=== PATIENT | female | born 1975 | race Caucasian/White ===

== ENCOUNTER → 2016-12-01 | Outpatient (CLI) | payer BC ==
--- NOTE | 2016-12-04 11:57 | MM ---
Reason for exam: screening (asymptomatic). Last mammogram was performed 6 years and 8 months ago. History: Patient has history of other cancer at age 38 and is nulliparous. Family history of breast cancer in maternal grandmother. Taking hormonal contraceptives for 25 years beginning at age 16. Physical Findings: A clinical breast exam by your physician is recommended on an annual basis and results should be correlated with mammographic findings. MG Screening Mammo w CAD Bilateral CC and MLO view(s) were taken. Prior study comparison: April 14, 2010, mammogram, performed at [facility]. January 10, 2008, mammogram, performed at [facility]. The breast tissue is heterogeneously dense. This may lower the sensitivity of mammography. New nodular density upper inner quadrant of right breast, 4.3cm from nipple. ASSESSMENT: Incomplete: need additional imaging evaluation, BI-RAD 0 RECOMMENDATION: Special view mammogram of the right breast. If lesion persists on supplemental views, image directed ultrasound is recommended. [facility] will attempt to contact patient to return for supplemental views and ultrasound if indicated.
== END | disposition home or self-care (01) ==
LOC: RADMAMWWP 11:45
PROVIDERS: ATTEND Obstetrics & Gynecology
DX: Z12.31 Encounter for screening mammogram for malignant neoplasm of breast (principal)

== ENCOUNTER → 2016-12-06 | Outpatient (CLI) | payer BC ==
--- NOTE | 2016-12-07 08:04 | MM ---
Reason for exam: additional evaluation requested from abnormal screening. Last mammogram was performed less than 1 month ago. History: Patient has history of other cancer at age 38 and is nulliparous. Family history of breast cancer in maternal grandmother. Taking hormonal contraceptives for 25 years beginning at age 16. Physical Findings: Nurse did not find any significant physical abnormalities on exam. MG Work Up Mamm w CAD RT ML, spot compression MLO, and spot compression CC view(s) were taken of the right breast. Prior study comparison: December 01, 2016, bilateral MG screening mammo w CAD. April 14, 2010, mammogram, performed at [facility]. There are scattered fibroglandular densities. 7mm round nodule appears circumscribed located at 2 o'clock. Ultrasound evaluation is recommended. These results were verbally communicated with the patient and result sheet given to the patient on 12/06/16. ASSESSMENT: Incomplete: need additional imaging evaluation, BI-RAD 0 RECOMMENDATION: Ultrasound of the right breast. (2 o'clock)
--- NOTE | 2016-12-07 08:05 | USB ---
Reason for exam: additional evaluation requested from abnormal screening. History: Patient has history of other cancer at age 38 and is nulliparous. Family history of breast cancer in maternal grandmother. Taking hormonal contraceptives for 25 years beginning at age 16. US Breast Workup Limited RT Right breast ultrasound demonstrates a 9 x 6 x 6mm oval, cystic lesion at 2 o'clock, benign and correspond well to the mammographic finding. These results were verbally communicated with the patient and result sheet given to the patient on 12/06/16. ASSESSMENT: Benign, BI-RAD 2 RECOMMENDATION: Return to routine screening mammogram schedule for both breasts.
== END | disposition home or self-care (01) ==
LOC: RADMAMWWP 15:32
PROVIDERS: ATTEND Obstetrics & Gynecology
DX: R92.8 Other abnormal and inconclusive findings on diagnostic imaging of breast (principal)
CPT/HCPCS: 76642; G0206

== ENCOUNTER → 2017-12-06 | Outpatient (CLI) | payer BC ==
--- NOTE | 2017-12-07 13:36 | MM ---
Reason for exam: screening (asymptomatic). Last mammogram was performed 1 year ago. History: Patient has history of other cancer at age 38 and is nulliparous. Family history of breast cancer in maternal grandmother. Taking hormonal contraceptives for 25 years beginning at age 16. Physical Findings: A clinical breast exam by your physician is recommended on an annual basis and results should be correlated with mammographic findings. MG 3D Screening Mammo W/Cad Bilateral CC and MLO view(s) were taken. Prior study comparison: December 06, 2016, right breast MG work up mamm w CAD RT. December 01, 2016, bilateral MG screening mammo w CAD. The breast tissue is heterogeneously dense. This may lower the sensitivity of mammography. No suspicious abnormality on left. Focal asymmetry upper outer quadrant right breast at middle depth. ASSESSMENT: Incomplete: need additional imaging evaluation, BI-RAD 0 RECOMMENDATION: Special view mammogram of the right breast. If lesion persists on supplemental views, image directed ultrasound is recommended. [facility] will attempt to contact patient to return for supplemental views and ultrasound if indicated.
== END | disposition home or self-care (01) ==
LOC: RADMAMWWP 11:11
PROVIDERS: ATTEND Obstetrics & Gynecology
DX: Z12.31 Encounter for screening mammogram for malignant neoplasm of breast (principal)
CPT/HCPCS: 77063; 77067

== ENCOUNTER → 2017-12-20 | Outpatient (CLI) | payer BC ==
--- NOTE | 2017-12-21 08:31 | MM ---
Reason for exam: additional evaluation requested from abnormal screening. Last mammogram was performed less than 1 month ago. History: Patient has history of other cancer at age 32 and is nulliparous. Family history of breast cancer in maternal grandmother. Taking hormonal contraceptives for 25 years beginning at age 16. Physical Findings: Nurse did not find any significant physical abnormalities on exam. MG 3D Work Up W/Cad RT Spot compression CC, spot compression MLO, and ML view(s) were taken of the right breast. Prior study comparison: December 06, 2017, bilateral MG 3d screening mammo w/cad. December 06, 2016, right breast MG work up mamm w CAD RT. There are scattered fibroglandular densities. Right upper outer quadrant focal asymmetry becomes less defined on spot compression 3D images and is not clearly seen on lateral view. Precautionary 6 month follow up recommended. These results were verbally communicated with the patient and result sheet given to the patient on 12/20/17. ASSESSMENT: Probably benign, BI-RAD 3 RECOMMENDATION: Follow-up diagnostic mammogram of the right breast in 6 months.
== END ==
LOC: RADMAMWWP 15:00
PROVIDERS: ATTEND Obstetrics & Gynecology
DX: R92.8 Other abnormal and inconclusive findings on diagnostic imaging of breast (principal)
CPT/HCPCS: 77061; 77065

== ENCOUNTER → 2019-08-22 | Outpatient (CLI) | payer BC ==
--- NOTE | 2019-08-25 10:10 | MM ---
Reason for exam: screening (asymptomatic). Last mammogram was performed 1 year and 8 months ago. History: Patient is postmenopausal, has history of other cancer at age 32, and is nulliparous. Family history of breast cancer in maternal grandmother. Taking hormonal contraceptives for 25 years beginning at age 16. Physical Findings: A clinical breast exam by your physician is recommended on an annual basis and results should be correlated with mammographic findings. MG 3D Screening Mammo W/Cad Bilateral CC and MLO view(s) were taken. Prior study comparison: December 20, 2017, right breast MG 3d work up w/cad RT. December 06, 2017, bilateral MG 3d screening mammo w/cad. The breast tissue is heterogeneously dense. This may lower the sensitivity of mammography. There is no discrete abnormality. ASSESSMENT: Negative, BI-RAD 1 RECOMMENDATION: Routine screening mammogram of both breasts in 1 year.
== END | disposition home or self-care (01) ==
LOC: RADMAMWWP 10:53
PROVIDERS: ATTEND Family Medicine
DX: Z12.31 Encounter for screening mammogram for malignant neoplasm of breast (principal)
CPT/HCPCS: 77063; 77067

== ENCOUNTER → 2020-10-07 | Outpatient (CLI) | payer BC ==
--- NOTE | 2020-10-11 14:14 | MM ---
Reason for exam: screening (asymptomatic). Last mammogram was performed 1 year and 2 months ago. History: Patient is postmenopausal, has history of other cancer at age 32, and is nulliparous. Family history of breast cancer in maternal grandmother. Taking hormonal contraceptives for 25 years beginning at age 16. Physical Findings: A clinical breast exam by your physician is recommended on an annual basis and results should be correlated with mammographic findings. MG 3D Screening Mammo W/Cad Bilateral CC and MLO view(s) were taken. Prior study comparison: December 06, 2017, bilateral MG 3d screening mammo w/cad. December 01, 2016, bilateral MG screening mammo w CAD. There are scattered fibroglandular densities. No significant changes when compared with prior studies. ASSESSMENT: Negative, BI-RAD 1 RECOMMENDATION: Routine screening mammogram of both breasts in 1 year.
== END | disposition home or self-care (01) ==
LOC: RADMAMWWP 11:37
PROVIDERS: ATTEND Obstetrics & Gynecology
DX: Z12.31 Encounter for screening mammogram for malignant neoplasm of breast (principal); Z78.0 Asymptomatic menopausal state; Z80.3 Family history of malignant neoplasm of breast
CPT/HCPCS: 77063; 77067

== ENCOUNTER → 2021-11-03 | Outpatient (CLI) | payer BC ==
--- NOTE | 2021-11-04 09:05 | MM ---
Reason for Exam: Screening (asymptomatic). Last mammogram was performed 1 year(s) and 1 month(s) ago. Patient History: Menarche at age 13. Patient has no children. Left ovary removed at age 19. Right ovary removed at age 16. Hysterectomy at age 29. Postmenopausal. Other cancer, age 32. Currently using Hormonal Contraceptives, beginning at age 16 for 25 years. Maternal grandmother had breast cancer. Risk Values: Princess 5 year model risk: 0.9%. NCI Lifetime model risk: 10.5%. Prior Study Comparison: 12/20/2017 Right Diagnostic Mammogram, [facility]. 08/22/2019 Bilateral Screening Mammogram, [facility]. 10/07/2020 Bilateral Screening Mammogram, [facility]. Tissue Density: The breast tissue is heterogeneously dense. This may lower the sensitivity of mammography. Findings: Analyzed By CAD. Some chronic nodularities within the right breast. No suspicious groups of microcalcifications, spiculated or lobular masses, architectural distortion or other secondary signs of malignancy are mammographically apparent. Overall Assessment: Benign, BI-RAD 2 Management: Screening Mammogram of both breasts in 1 year. A negative mammogram report should not preclude additional follow up of suspicious palpable abnormalities. Patient should continue monthly self breast exam. A clinical breast exam by your physician is recommended on an annual basis and results should be correlated with mammographic findings. Electronically signed and approved by: Rigoberto Mclaughlin D.O. Radiologis
== END | disposition home or self-care (01) ==
LOC: RADMAMWWP 13:40
PROVIDERS: ATTEND Obstetrics & Gynecology
DX: Z12.31 Encounter for screening mammogram for malignant neoplasm of breast (principal); Z78.0 Asymptomatic menopausal state; Z85.89 Personal history of malignant neoplasm of other organs and systems; Z80.3 Family history of malignant neoplasm of breast; Z90.710 Acquired absence of both cervix and uterus
CPT/HCPCS: 77067

== ENCOUNTER → 2022-08-30 | Day surgery (SDC) | payer BC ==
[2022-08-07 15:37] VITALS: BMI 26.6
[~2022-08-30] MED LIST: LACTATED RINGERS 1,000 ML IV SCH; LIDOCAINE 1% (10MG/ML) FOR IV START INTRADERMA PRN; LIDOCAINE 2% INJ 20 MG/ML (2 ML VIAL) ONE; PROPOFOL 10 MG/ML 20 ML VIAL IV ONE
[2022-08-30 07:17] VITALS: TEMP 97.8
--- NOTE | 2022-08-30 07:54 | P.GSHP ---
History of Present Illness H&P Date: 08/30/22 CHIEF COMPLAINT: Colon screen HISTORY OF PRESENT ILLNESS: The patient is a -year-old female who presents for colon screen. Lower endoscopy was offered for further evaluation and management. PAST MEDICAL HISTORY: Please see list. PAST SURGICAL HISTORY: Please see list. MEDICATIONS: Please see list. ALLERGIES: Please see list. SOCIAL HISTORY: No illicit drug use FAMILY HISTORY: No reports of Crohn disease or ulcerative colitis. REVIEW OF ORGAN SYSTEMS: CONSTITUTIONAL: No reports of fevers or chills. PHYSICAL EXAM: VITAL SIGNS: Stable GENERAL: Well-developed pleasant in no acute distress. HEENT: No scleral icterus. Extraocular movements grossly intact. Moist buccal mucosa. NECK: Supple without lymphadenopathy. CHEST: Unlabored respirations. Equal bilateral excursions. CARDIOVASCULAR: Regular rate and rhythm. Distal 2+ pulses. ABDOMEN: Soft, nontender, nondistended. MUSCULOSKELETAL: No clubbing, cyanosis, or edema. ASSESSMENT: 1. Colon screen. PLAN: 1. Recommend proceeding with a lower endoscopy Past Medical History Past Medical History: Cancer, Thyroid Disorder Additional Past Medical History / Comment(s): thyroid History of Any Multi-Drug Resistant Organisms: None Reported Additional Past Surgical History / Comment(s): thyroidectomy, ovarian cyst removed colonoscopy no polyps Past Anesthesia/Blood Transfusion Reactions: No Reported Reaction Past Psychological History: No Psychological Hx Reported Smoking Status: Never smoker Past Alcohol Use History: None Reported Past Drug Use History: None Reported - Past Family History Father Family Medical History: Cancer Additional Family Medical History / Comment(s): skin Medications and Allergies Home Medications Medication Instructions Recorded Confirmed Type Calcium Carbonate [Calcium] 600 mg PO HS 12/14/15 08/30/22 History EPINEPHrine [Epipen 2-Connor] 0.3 mg IM ONCE PRN #1 ml 12/14/15 08/30/22 Rx Levothyroxine Sodium [Synthroid] 100 mcg PO DAILY 12/14/15 08/30/22 History Multivitamins, Thera [Multivitamin] 1 tab PO HS 12/14/15 08/30/22 History Allergies Allergy/AdvReac Type Severity Reaction Status Date / Time bee venom protein (honey bee) AdvReac Severe Rapid Verified 08/25/22 15:45 Heart Rate Surgical - Exam Vital Signs Temp Pulse Resp BP Pulse Ox 97.8 F 71 17 126/82 98 08/30/22 07:16 08/30/22 07:16 08/30/22 07:16 08/30/22 07:16 08/30/22 07:16
[2022-08-30 08:33] VITALS: BP 121/80; PULSE 78; RESP 16
--- NOTE | 2022-08-30 09:37 | P.PCN ---
Date of Procedure: 08/30/22 Description of Procedure: PREOPERATIVE DIAGNOSIS: Change in bowel habits Family history of gastrointestinal malignancy POSTOPERATIVE DIAGNOSIS: Tubular adenoma splenic flexure Tubular adenoma ascending colon Sigmoid diverticulosis OPERATION: Colonoscopy to the ileocecal valve and appendiceal orifice, cecum Colonoscopy with hot snare polypectomy SURGEON: Eunice Kline MD. ANESTHESIA: MAC. INDICATIONS: The patient is an 47-year-old female who presents with change in bowel habits and family history of gastrointestinal malignancy. Benefits and risks were described and informed consent was obtained. DESCRIPTION OF PROCEDURE: The patient had undergone Sutab prep. The patient had been brought into the operating room and laid in the left lateral decubitus position. After adequate intravenous sedation, the rectum was examined with 2% lidocaine jelly. External hemorrhoids were encountered. The rectal tone was loose. No lesions were palpated in the rectal vault. An Olympus colonoscope was advanced until the cecum, ileocecal valve and appendiceal orifice were clearly viewed. The prep was good. Sigmoid diverticulosis was encountered. Colonic polyps were found and removed. No evidence of focal colitis was found. Retroflexion of the scope demonstrated grade 1 internal hemorrhoids without active bleeding or inflammation. The colon was desufflated. The patient had tolerated the procedure well. Withdrawal time was over 6 minutes. FINDINGS: Aronchick preparation quality scale 2 (1-5) Internal hemorrhoids, grade 1 External hemorrhoids, grade 1. No arteriovenous malformations. Sigmoid diverticulosis Removal of 2 polyps: - Cold forceps biopsy at 20 cm from the anal verge, 4 mm polyp, sigmoid colon - Cold forceps biopsy at 25 cm from the anal verge, 5 mm polyp, sigmoid colon No focal colitis. RECOMMENDATIONS: Repeat colonoscopy 3 years, 2025 Plan - Discharge Summary Discharge Rx Participant: Yes New Discharge Prescriptions: Continue Multivitamins, Thera [Multivitamin (formulary)] 1 tab PO HS Levothyroxine Sodium [Synthroid] 100 mcg PO DAILY Calcium Carbonate [Calcium] 600 mg PO HS EPINEPHrine [Epipen 2-Connor] 0.3 mg IM ONCE PRN #1 ml PRN Reason: Allergic Reaction Discharge Medication List Calcium Carbonate [Calcium] 600 mg PO HS 12/14/15 [History] EPINEPHrine [Epipen 2-Connor] 0.3 mg IM ONCE PRN #1 ml 12/14/15 [Rx] Levothyroxine Sodium [Synthroid] 100 mcg PO DAILY 12/14/15 [History] Multivitamins, Thera [Multivitamin (formulary)] 1 tab PO HS 12/14/15 [History] Follow up Appointment(s)/Referral(s): Eunice Kline MD [STAFF PHYSICIAN] - As Needed Patient Instructions/Handouts: *Surgery [facility] - (Anesthesia) Discharge Instructions Outpatient Surgery, Diverticulosis (DC), Colorectal Polyps (GEN), Diverticulosis Diet (GEN), Colonoscopy (DC) Activity/Diet/Wound Care/Special Instructions: Repeat colonoscopy 3 years, 2025 Discharge Disposition: HOME SELF-CARE
== END | disposition home or self-care (01) ==
LOC: ORWHC2ENDO 06:56
PROVIDERS: ATTEND Surgery Plastic and Reconstructive Surgery
DX: K63.5 Polyp of colon (principal); K57.30 Diverticulosis of large intestine without perforation or abscess without bleeding; K64.4 Residual hemorrhoidal skin tags; K64.0 First degree hemorrhoids; E07.9 Disorder of thyroid, unspecified; Z98.890 Other specified postprocedural states; Z79.890 Hormone replacement therapy; Z91.030 Bee allergy status; Z79.899 Other long term (current) drug therapy
CPT/HCPCS: 88305; 45380; J2704; J2001

== ENCOUNTER → 2023-04-05 | Outpatient (CLI) | payer BC ==
--- NOTE | 2023-04-05 12:08 | MM ---
Reason for Exam: Screening (asymptomatic). Last mammogram was performed 1 year(s) and 5 month(s) ago. Patient History: Menarche at age 13. Patient has no children. Left ovary removed at age 19. Right ovary removed at age 16. Hysterectomy at age 29. Postmenopausal. Other cancer, age 32. Hormonal Contraceptives, from age 16 until age 45. Currently using Estrogen and Progesterone, starting at age 46. Maternal grandmother had breast cancer. Risk Values: Princess 5 year model risk: 1.0%. NCI Lifetime model risk: 10.3%. Prior Study Comparison: 12/06/2017 Bilateral Screening Mammogram, [facility]. 12/20/2017 Right Diagnostic Mammogram, [facility]. 08/22/2019 Bilateral Screening Mammogram, [facility]. 10/07/2020 Bilateral Screening Mammogram, [facility]. 11/03/2021 Bilateral MG screening mammo w CAD, [facility]. Tissue Density: The breast tissue is heterogeneously dense. This may lower the sensitivity of mammography. Findings: Analyzed By CAD. There is no suspicious group of microcalcifications or new suspicious mass. Overall Assessment: Negative, BI-RAD 1 Management: Screening Mammogram of both breasts in [address] [facility] will attempt to contact patient to return for supplemental views and ultrasound if indicated. Patient should continue monthly self-breast exams. A clinical breast exam by your physician is recommended on an annual basis. This exam should not preclude additional follow-up of suspicious palpable abnormalities. Note on Princess scores and lifetime risk: 1. A Princess score greater than 3% is considered moderate risk. If this is the case, consider specialist referral to assess eligibility for a risk reducing agent. 2. If overall lifetime risk for the development of breast cancer is 20% or higher, the patient may qualify for future screening with alternating mammogram and breast MRI. Electronically signed and approved by: Adam Marrufo DO
== END | disposition home or self-care (01) ==
LOC: RADMAMWWP 11:05
PROVIDERS: ATTEND Obstetrics & Gynecology
DX: Z12.31 Encounter for screening mammogram for malignant neoplasm of breast (principal); Z80.3 Family history of malignant neoplasm of breast; Z78.0 Asymptomatic menopausal state
CPT/HCPCS: 77063; 77067

== ENCOUNTER → 2024-04-07 | Outpatient (CLI) | payer BC ==
--- NOTE | 2024-04-07 12:09 | MM ---
Reason for Exam: Screening (asymptomatic). Last screening mammogram was performed 12 month(s) ago. Patient History: Menarche at age 13. Patient has no children. Left ovary removed at age 19. Right ovary removed at age 16. Postmenopausal. Other cancer, age 32. Hormonal Contraceptives, from age 16 until age 45. Currently using Estrogen and Progesterone, starting at age 46. Maternal grandmother had breast cancer. Risk Values: Princess 5 year model risk: 1.0%. NCI Lifetime model risk: 10.2%. Prior Study Comparison: 10/07/2020 Bilateral Screening Mammogram, [facility]. 11/03/2021 Bilateral MG screening mammo w CAD, [facility]. 04/05/2023 Bilateral MG 3D screening mammo w/cad, [facility]. Tissue Density: There are scattered areas of fibroglandular density. Findings: Analyzed By CAD. There is no suspicious group of microcalcifications or new suspicious mass in either breast. Overall Assessment: Negative, BI-RAD 1 Management: Screening Mammogram of both breasts in 1 year. . Patient should continue monthly self-breast exams. A clinical breast exam by your physician is recommended on an annual basis. This exam should not preclude additional follow-up of suspicious palpable abnormalities. Note on Princess scores and lifetime risk: 1. A Princess score greater than 3% is considered moderate risk. If this is the case, consider specialist referral to assess eligibility for a risk reducing agent. 2. If overall lifetime risk for the development of breast cancer is 20% or higher, the patient may qualify for future screening with alternating mammogram and breast MRI. [facility], , 04/07/2024 12:06 PM. Electronically signed and approved by: Jatinder Dove M.D.
== END | disposition home or self-care (01) ==
LOC: RADMAMWWP 11:16
PROVIDERS: ATTEND Obstetrics & Gynecology
DX: Z12.31 Encounter for screening mammogram for malignant neoplasm of breast (principal); R92.323 Mammographic fibroglandular density, bilateral breasts; Z90.722 Acquired absence of ovaries, bilateral; Z80.3 Family history of malignant neoplasm of breast; Z78.0 Asymptomatic menopausal state
CPT/HCPCS: 77063; 77067